=== PATIENT | female | born 1970 | race Asian ===

== ENCOUNTER 2017-05-15 10:03 | Emergency (ER) | payer OTHER, MEDICAID ==
[2017-05-15 10:26] VITALS: RESP 16; O2SAT 100
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
[2017-05-15] MEDS ORDERED: IOPAMIDOL (ISOVUE-300) 100 ML BTL ONE ×2 (10:47→11:04)
[2017-05-15] MEDS ORDERED: traMADol 50 MG TAB PO ONE (11:06)
[2017-05-15 11:55] VITALS: BP 103/50; PULSE 58; TEMP 98.1
== END 2017-05-15 11:53 | disposition home or self-care (01) ==
LOC: EDUNIT#
DX: S16.1XXA Strain of muscle, fascia and tendon at neck level, initial encounter (principal); S29.9XXA Unspecified injury of thorax, initial encounter; V43.52XA Car driver injured in collision with other type car in traffic accident, initial encounter; Y92.410 Unspecified street and highway as the place of occurrence of the external cause; Y99.8 Other external cause status; Y93.89 Activity, other specified
CPT/HCPCS: 82947-QW; Q9967

== ENCOUNTER 2018-01-16 19:52 | Emergency (ER) | payer MEDICAID, OTHER ==
[2018-01-16] MEDS ORDERED: NS 500 ML IV ONE (20:19)
--- NOTE | 2018-01-16 20:24 | EDPHY ---
H & P Time Seen by Provider: 01/16/18 20:04 HPI/ROS: CHIEF COMPLAINT: Abdominal pain HISTORY OF PRESENT ILLNESS: The patient is a 47-year-old female presents emergency department with right lower abdominal/side pain. Pain started 1 month ago. It has been intermittent. It is worse when she stands for prolonged periods of time. It is slightly worse with movement. She has had no dysuria frequency. No hematuria. No fevers or chills. No nausea or vomiting. No recent trauma. Her last menstrual period was 1 week ago. REVIEW OF SYSTEMS: My complete review of systems is negative except as mentioned in the HPI. Past Medical/Surgical History: Negative Past surgical history: Negative Social history: The patient speaks [place]. Smoking Status: Never smoked Physical Exam: Vitals noted. Afebrile GENERAL: Well-appearing, in no acute distress, alert. HEENT: Eyes normal to inspection, normal pharynx, no signs of dehydration. NECK: [No thyromegaly, no lymphadenopathy, supple. RESPIRATORY: Clear to auscultation bilaterally, no rales, rhonchi or wheezing. CVS: Regular rate and rhythm, no rubs, murmurs, or gallops. ABDOMEN: Soft, minimal right lower quadrant tenderness to palpation with no rebound or guarding, nondistended, no organomegaly. BACK: Normal to inspection, no CVA tenderness. SKIN: Normal color, no rash, warm, dry. No pallor. EXTREMITIES: No pedal edema, no calf tenderness, no Homans sign or cords, no joint swelling. NEURO/PSYCH: Alert and oriented x3, normal mood and affect, normal motor sensory exam. Constitutional: Initial Vital Signs Temperature (C) 36.8 C 01/16/18 19:56 Heart Rate 69 01/16/18 19:56 Respiratory Rate 20 01/16/18 19:56 Blood Pressure 114/71 01/16/18 19:56 O2 Sat (%) 97 01/16/18 19:56 O2 Delivery Mode Room Air Allergies/Adverse Reactions: No Known Allergies Allergy (Unverified 01/16/18 19:55) Home Medications: Medication Instructions Recorded NK [No Known Home Meds] 01/16/18 Medical Decision Making ED Course/Re-evaluation: In the emergency department I discussed possible etiologies with the patient. I answered all her questions. IV was placed. Laboratory studies and ultrasound were ordered. 2045: Patient is signed out to Dr. Pugh at change of shift. Patient is awaiting laboratory and ultrasound results. Differential Diagnosis: My differential includes but is not limited to appendicitis, ovarian cyst, ovarian torsion, , ectopic , urinary tract infection, pyelonephritis, diverticulitis, small-bowel obstruction, mass, malignancy - Data Points Laboratory Results: 01/16/18 01/16/18 01/16/18 19:52 19:52 19:52 WBC Pending RBC Pending Hgb Pending Hct Pending MCV Pending MCH Pending MCHC Pending RDW Pending Plt Count Pending MPV Pending Neut % (Auto) Pending Lymph % (Auto) Pending [place] % (Auto) Pending Eos % (Auto) Pending Baso % (Auto) Pending Nucleat RBC Rel Count Pending Absolute Neuts (auto) Pending Absolute Lymphs (auto) Pending Absolute Monos (auto) Pending Absolute Eos (auto) Pending Absolute Basos (auto) Pending Absolute Nucleated RBC Pending Immature Gran % Pending Immature Gran # Pending Sodium Pending Potassium Pending Chloride Pending Carbon Dioxide Pending Anion Gap Pending BUN Pending Creatinine Pending Estimated GFR Pending Glucose Pending Calcium Pending Beta HCG, Qual Pending Medications Given: Discontinued Medications Sodium Chloride (Ns) 500 mls @ 0 mls/hr IV EDNOW ONE; Wide Open PRN Reason: Protocol Stop: 01/16/18 20:20 Last Admin: 01/16/18 20:39 Dose: 500 mls Departure - Departure Clinical Impression: Abdominal pain Qualifiers: Abdominal location: right lower quadrant Qualified Code(s): R10.31 - Right lower quadrant pain Condition: Good Instructions: Abdominal Pain (ED) Additional Instructions: Return with increasing pain, fever, vomiting or any other concerns. You been given follow-up with the primary care physician. Call tomorrow to make appointment. Referrals: Joanna Rothman DO [Doctor of Osteopathy] - 3-4 days, if not improved
[2018-01-16 20:44] LABS: PLATELET COUNT 334 10^3/uL (150-400)
[2018-01-16] MEDS ORDERED: IOPAMIDOL (ISOVUE-300) 100 ML BTL ONE (21:39)
[2018-01-16 22:35] VITALS: BP 114/68
== END 2018-01-16 22:36 | disposition home or self-care (01) ==
DX: R10.31 Right lower quadrant pain (principal); E86.9 Volume depletion, unspecified
CPT/HCPCS: Q9967

== ENCOUNTER → 2018-02-19 | Outpatient (CLI) | payer MEDICAID | LOC: FIMAGING 08:01 | PROVIDERS: ATTEND Family Medicine | DX: N60.02 Solitary cyst of left breast (principal); N92.0 Excessive and frequent menstruation with regular cycle ==

== ENCOUNTER → 2018-11-03 | Outpatient (CLI) | payer MEDICAID | LOC: FIMAGING 14:28 | PROVIDERS: ATTEND Family Medicine | DX: N60.02 Solitary cyst of left breast (principal) ==